=== PATIENT | female | born 1960 | race Caucasian/White ===

== ENCOUNTER 2017-02-05 18:33 | Emergency (ER) | payer SELFPAY | END 2017-02-05 19:42 | disposition left against medical advice (07) | LOC: MADERS 18:33 | DX: Z53.21 Procedure and treatment not carried out due to patient leaving prior to being seen by health care provider (principal); F17.210 Nicotine dependence, cigarettes, uncomplicated ==

== ENCOUNTER 2017-02-26 19:10 | Emergency (ER) | payer SELFPAY ==
[2017-02-26] MEDS ORDERED: HYDROcodone/Acetaminophen 10/325 mg Tablet ONE (20:30)
[2017-02-26] MEDS ORDERED: Sulfameth/Trimethoprim DS 800-160mg TAB ONE (20:31)
[2017-02-26] MEDS ORDERED: Naproxen 500 MG TAB ONE (20:31)
[2017-02-26] MEDS ORDERED: Cephalexin 500 MG CAP ONE (20:31)
== END 2017-02-26 20:35 | disposition home or self-care (01) ==
LOC: MADERS 19:10
DX: L01.00 Impetigo, unspecified (principal); L30.9 Dermatitis, unspecified; I10 Essential (primary) hypertension; F17.210 Nicotine dependence, cigarettes, uncomplicated
CPT/HCPCS: 96372; J1040

== ENCOUNTER 2017-06-01 10:24 | Emergency (ER) | payer SELFPAY | END 2017-06-01 11:05 | disposition home or self-care (01) | LOC: MADERS 10:24 | DX: J11.1 Influenza due to unidentified influenza virus with other respiratory manifestations (principal); I10 Essential (primary) hypertension; F17.210 Nicotine dependence, cigarettes, uncomplicated | CPT/HCPCS: 99283 ==

== ENCOUNTER 2017-10-28 19:45 | Emergency (ER) | payer BC, SELFPAY ==
[2017-10-28] MEDS ORDERED: Dexamethasone 4 MG TAB ONE (20:17)
[2017-10-28] MEDS ORDERED: Famotidine 20 MG TAB ONE (20:17)
[2017-10-28] MEDS ORDERED: Ibuprofen 800 MG TAB ONE (20:17)
[2017-10-28] MEDS ORDERED: Cephalexin 500 MG CAP ONE (20:18)
== END 2017-10-28 20:49 | disposition home or self-care (01) ==
LOC: MADERS 19:45
DX: L03.114 Cellulitis of left upper limb (principal); L03.113 Cellulitis of right upper limb; L03.312 Cellulitis of back [any part except buttock and flank]; F17.210 Nicotine dependence, cigarettes, uncomplicated; I10 Essential (primary) hypertension
CPT/HCPCS: 99283; J8540

== ENCOUNTER 2018-09-23 16:58 | Emergency (ER) | payer BC | END 2018-09-23 17:38 | disposition home or self-care (01) | LOC: MADERS 16:58 | DX: R21 Rash and other nonspecific skin eruption (principal); F17.210 Nicotine dependence, cigarettes, uncomplicated | CPT/HCPCS: 99281 ==

== ENCOUNTER 2019-01-28 11:10 | Emergency (ER) | payer BC ==
--- NOTE | 2019-01-28 12:07 | RAD ---
EXAM: Chest 2 views: HISTORY: Fall with left chest pain COMPARISON: None. FINDINGS: There is a normal-sized cardiomediastinal silhouette. There is no evidence of consolidation, mass, or pleural effusion. The bones are unremarkable. IMPRESSION: No evidence of acute cardiopulmonary disease
== END 2019-01-28 12:34 | disposition home or self-care (01) ==
LOC: MADERS 11:10
DX: S20.212A Contusion of left front wall of thorax, initial encounter (principal); I10 Essential (primary) hypertension; F17.210 Nicotine dependence, cigarettes, uncomplicated; W18.30XA Fall on same level, unspecified, initial encounter
CPT/HCPCS: 71046; 94799

== ENCOUNTER 2019-02-21 15:42 | Emergency (ER) | payer BC ==
[2019-02-21] MEDS ORDERED: Ibuprofen 800 MG TAB ONE (16:05)
[2019-02-21] MEDS ORDERED: HYDROcodone/Acetaminophen 5/325 mg Tablet ONE (16:05)
[2019-02-21] MEDS ORDERED: Acetaminophen 325 MG TAB ONE (16:05)
--- NOTE | 2019-02-21 16:13 | RAD ---
Left hand:3 views. INDICATIONS:Injury with pain. COMPARISON:None FINDINGS: Carpals appear normally aligned and intact. There is an obliquely oriented fracture involving the midshaft of the fourth metacarpal with mild dis placement. Phalanges appear intact. MCP and IP joints appear unremarkable. No soft tissue abnormality. IMPRESSION: Fracture fourth metacarpal
== END 2019-02-21 16:49 | disposition home or self-care (01) ==
LOC: MADERS 15:42
DX: S62.325A Displaced fracture of shaft of fourth metacarpal bone, left hand, initial encounter for closed fracture (principal); I10 Essential (primary) hypertension; F17.210 Nicotine dependence, cigarettes, uncomplicated; V40.5XXA Car driver injured in collision with pedestrian or animal in traffic accident, initial encounter

== ENCOUNTER 2019-12-08 13:26 | Emergency (ER) | payer SELFPAY | END 2019-12-08 13:49 | disposition home or self-care (01) | LOC: MADERS 13:26 | DX: L03.116 Cellulitis of left lower limb (principal); I10 Essential (primary) hypertension; F17.210 Nicotine dependence, cigarettes, uncomplicated | CPT/HCPCS: 99283 ==

== ENCOUNTER 2021-09-26 16:55 | Emergency (ER) | payer OTHER, BC | END 2021-09-26 17:52 | disposition home or self-care (01) | LOC: MADERS 16:55 | DX: S93.402A Sprain of unspecified ligament of left ankle, initial encounter (principal); I10 Essential (primary) hypertension; F17.210 Nicotine dependence, cigarettes, uncomplicated; W01.0XXA Fall on same level from slipping, tripping and stumbling without subsequent striking against object, initial encounter ==

== ENCOUNTER 2024-01-15 06:07 | Emergency (ER) | payer BC, SELFPAY ==
[2024-01-15 06:29] LABS: #Basophils 0.2 thou/uL (0.0-0.2); #Eosinphils 0.1 thou/uL (0.0-0.7); #Lymphocytes 5.3 thou/uL (1.20-3.40); #Monocytes 0.8 thou/uL (0.11-0.59); #Neutrophils 5.3 thou/uL (1.40-6.50); %Basophils 1.9 % (0.0-1.0); %Eosinophils 1.1 % (0.0-10.0); %Lymphocytes 45.1 % (21.0-51.0); %Monocytes 6.7 % (0.0-10.0); %Neutrophils 45.1 % (42.0-75.0); Hematocrit 46.4 % (36.0-47.0); Hemoglobin 14.4 g/dL (12.0-16.0); Mean Corpuscular Hemoglobin 29.7 pg (27.0-31.0); Mean Corpuscular Volume 95.7 fl (78.0-98.0); Mean Platelet Volume 9.3 fL (7.4-10.4); Platelet Count 113 10x3/uL (130-400); RBC Distribution Width 13.4 % (11.5-14.5); Red Blood Cell (RBC) Count 4.84 mill/uL (4.20-5.40); White Blood Cell (WBC) Count 11.7 10x3/uL (4.8-10.8)
[2024-01-15 06:37] LABS: Anisocytosis SLIGHT = 6-15 cells (100X) (0-5/hpf); Platelet Adequacy Comment Appears Adequate
[2024-01-15 06:42] LABS: ALT (SGPT) 33 U/L (8-55); AST (SGOT) 41 U/L (5-34); Alkaline Phosphatase 98 U/L (40-110); Anion Gap 25 mmol/L (10-20); BUN (Urea Nitrogen) 9 mg/dL (9.8-20.1); Bilirubin, Total 0.5 mg/dL (0.2-1.2); Calc. Creatinine Clearance 0 mL/min (70-130); Calcium 9.7 mg/dL (7.8-10.44); Carbon Dioxide 13 mmol/L (23-31); Chloride 107 mmol/L (98-107); Estimated GFR 67; Globulin 3.2 g/dL (2.4-3.5); Glucose 211 mg/dL (80-115); Potassium 4.2 mmol/L (3.5-5.1); Protein, Total 6.2 g/dL (5.8-8.1); Sodium 141 mmol/L (136-145)
[2024-01-15 07:13] LABS: Troponin I 0.109 ng/mL (< 0.028)
[2024-01-15] MEDS ORDERED: EPINEPHrine 1 MG/10 ML Abboject SYRINGE ONE (09:00)
[2024-01-15] MEDS ORDERED: Sodium Bicarb 50 MEQ/50 ML Abboject 8.4% SYRINGE ONE (09:00)
== END 2024-01-15 09:30 | disposition expired ==
LOC: MADERS 06:07
DX: I46.9 Cardiac arrest, cause unspecified (principal); I10 Essential (primary) hypertension; F17.210 Nicotine dependence, cigarettes, uncomplicated
CPT/HCPCS: 80053; 84484; 85025; 96374; 96375; J0171